=== PATIENT | female | born 1950 | race Caucasian/White ===

== ENCOUNTER 2016-04-07 19:08 | Emergency (ER) | payer OTHER ==
[~2016-04-07] VITALS: Ht 147.3 cm; Wt 89.5 kg
[~2016-04-07 19:08] MED LIST: ADULT LOW DOSE81 M1 PO; APLISOL5 TUB UNIT ID; ASPIR-LOW81 MG PO; ASPIRIN81 M2 PO; ATIVAN1 MG PO; ATORVASTATIN CA80 MG PO; BACTRIM,SEPT1 TABLET PO; BENTYL10 MG PO; BUMEX1 MG PO; CEFTIN500 MG PO; CYMBALTA30 MG PO; DOXYCYCLINE HY100 MG PO; DULCOLAX10 MG PR; DUONEB 2.5-0.5 M3 ML AEROSOL; ERGOCALCIF50000 UNIT PO; FLEET ENEMA-AD118 ML PR; FLORASTOR250 MG PO; GLYBURIDE2.5 MG PO; HYDROCODON-ACE1 EAC7 PO; JANUMET 50/51 TABLET PO; JANUVIA100 MG PO; JANUVIA25 M1 PO; LEVAQUIN500 MG PO; LEVOTHYROXINE50 MCG PO; LIPITOR40 MG PO; LIPITOR80 MG PO; LISINOPRIL10 MG PO; LISINOPRIL20 MG PO; LOPERAMIDE2 M1 PO; LOPRESSOR50 MG PO; Levaquin PO; Lipitor PO; METFORMIN HCL500 MG PO; METOPROLOL SUCC25 MG PO; METOPROLOL TART50 MG PO; MICRONASE2.5 MG PO; MILK OF MAGN PO; MUCINEX600 MG PO; NOVOLOG PE100 UNITS/ SC; PRINIVIL20 MG PO; PROVENTIL,2.5 MG/0.5 IH; ROXICODONE5 MG PO; Robitussin DM PO; SERTRALINE HCL50 MG PO; SYNTHROID50 MCG PO; TOPROL XL50 MG PO; TRAZODONE HCL50 MG PO; VITAMIN B-122000 MC1 PO; VITAMIN D250000 UNIT PO; VITAMIN D310000 UNIT PO; Vitamin B-12 PO; ZESTRIL,PRINIVI20 MG PO; ZESTRIL20 MG PO; ZOLOFT50 MG PO; Zestril,Prinivil PO; Zoloft PO
[2016-04-07 20:18] LABS: CARBON DIOXIDE (BICARBONATE) 33.5 MEQ/L (20-31); MCH 29.2 PG (29.0-34.0); MCHC 31.2 G/DL (30.0-36.0); MCV 93.7 FL (83-99); PLATELET COUNT 211 K/uL (156-360); RBC DIS.WIDTH-CV 14.4 % (11.8-14.6); RBC DIS.WIDTH-SD 46.9 % (39-53); RED BLOOD COUNT 3.63 M/uL (3.80-5.20); WHITE BLOOD COUNT 6.3 K/uL (4.1-10.2)
[2016-04-07 20:42] LABS: TROP-I INTERPRETATION NEGATIVE; TROPONIN-I 0.03 ng/mL (0.0-0.30)
[2016-04-07 20:47] LABS: CHLORIDE 105 mEq/L (99-109); POTASSIUM 4.3 mEq/L (3.7-5.4); SODIUM 143 mEq/L (136-147)
[2016-04-07 20:49] LABS: GLUCOSE 98 mg/dL (70-99)
[2016-04-07 20:50] LABS: ANION GAP 10 MEQ/L (2-14)
[2016-04-07 20:52] LABS: GFR ESTIMATE (CALCULATED) 47 mL/min/
[2016-04-07 20:54] LABS: UREA NITROGEN (BUN) 32 mg/dL (9-23)
[2016-04-07 23:10] VITALS: BP 139/67
== END 2016-04-07 23:10 ==
LOC: EME → EDBD 19:08 → EME 19:08
PROVIDERS: Emergency Medicine
DX: J44.0 Chronic obstructive pulmonary disease with (acute) lower respiratory infection (principal); J18.9 Pneumonia, unspecified organism; E11.9 Type 2 diabetes mellitus without complications; E78.5 Hyperlipidemia, unspecified; I10 Essential (primary) hypertension; Q96.9 Turner's syndrome, unspecified; Z87.442 Personal history of urinary calculi; Z87.891 Personal history of nicotine dependence
CPT/HCPCS: 71020; 80048; 82803; 83605; 83880; 84484; 85027; 87040; 93005; 94640; 94799; 99281; 99284

== ENCOUNTER 2016-12-16 02:34 | Inpatient (IN) | payer OTHER ==
[~2016-12-16] VITALS: Ht 144.8 cm; Wt 79.3 kg
[2016-12-16 03:40] LABS: HEMATOCRIT 38.2 % (36.0-46.0); MCH 30.3 PG (29.0-34.0); MCHC 32.2 G/DL (30.0-36.0); MCV 94.1 FL (83-99); MEAN PLAT.VOLUME 9.6 uM^3 (9.5-12.4); PLATELET COUNT 244 K/uL (156-360); RBC DIS.WIDTH-SD 45.1 % (39-53); RED BLOOD COUNT 4.06 M/uL (3.80-5.20); WHITE BLOOD COUNT 14.6 K/uL (4.1-10.2)
[2016-12-16 03:42] LABS: CARBON DIOXIDE (BICARBONATE) 33.2 MEQ/L (20-31)
[2016-12-16 03:49] LABS: PROTHROMBIN TIME 11.5 SEC (10.2-12.9)
[2016-12-16 03:51] LABS: CHLORIDE 102 mEq/L (99-109); POTASSIUM 4.7 mEq/L (3.7-5.4); SODIUM 142 mEq/L (136-147)
[2016-12-16 03:52] LABS: PTT 29.8 SEC (25-37)
[2016-12-16 03:53] LABS: GLUCOSE 276 mg/dL (70-99)
[2016-12-16 03:55] LABS: ANION GAP 12 MEQ/L (2-14); TOTAL BILIRUBIN 0.5 mg/dL (0.0-1.0)
[2016-12-16 03:57] LABS: ALKALINE PHOSPHATASE 108 IU/L (3-129); GFR ESTIMATE (CALCULATED) 47 mL/min/
[2016-12-16 03:58] LABS: UREA NITROGEN (BUN) 42 mg/dL (9-23)
[2016-12-16 04:00] LABS: LIPASE 6 U/L (1.0-51.0)
[2016-12-16 04:01] LABS: TROP-I INTERPRETATION NEGATIVE; TROPONIN-I 0.09 ng/mL (0.0-0.30)
[2016-12-16 05:50] VITALS: BP 115/80
[2016-12-16 06:00] VITALS: BP 106/79
[2016-12-16 06:07] LABS: BASE EXCESS 5.5 mEq/L (-3 to +3); BICARBONATE 32.9 mEq/L (22-26); CARBOXY HGB 0.9 % (0-5); COMMENTS - BLOOD GASES C+; DEVICE MASK VENT; FI02 70 %; METHEMOGLOBIN 1.4 % (0-1.5); MODE SPONT; PCO2 61 mm Hg (35-45); PEEP 10 CM/H20; PO2 80 mm Hg (80-100); PRES. SUPPORT 15 CM/H2O; SITE RR; TOTAL RESP RATE 38 resp/min; pH 7.34 (7.35-7.45)
[2016-12-16 06:25] VITALS: BP 114/70
[2016-12-16 08:00] VITALS: BP 136/67
[2016-12-16 09:08] LABS: METH RESISTANT S AUREUS PCR POSITIVE (NEGATIVE)
[2016-12-16 09:11] LABS: PROBE CHECK PASS
[2016-12-16 12:00] VITALS: BP 87/50
[2016-12-16] MEDS ORDERED: ASCORBIC ACID500 M3 PO (13:20)
[2016-12-16] MEDS ORDERED: CYMBALTA30 MG PO (13:23)
[2016-12-16] MEDS ORDERED: VITAMIN D22000 UNIT PO (13:24)
[2016-12-16] MEDS ORDERED: COLACE100 MG PO (13:30)
[2016-12-16] MEDS ORDERED: FERROUS SULFAT325 MG PO (13:31)
[2016-12-16] MEDS ORDERED: GLUCOPHAGE500 MG PO (13:33)
[2016-12-16] MEDS ORDERED: PURE & GENTLE E15 ML BOTH EYES (13:38)
[2016-12-16] MEDS ORDERED: DULCOLAX10 MG PR (13:39)
[2016-12-16] MEDS ORDERED: FLEET MINERAL133 ML PR (13:41)
[2016-12-16] MEDS ORDERED: MILK OF MAGN PO (13:42)
[2016-12-16] MEDS ORDERED: ROXICODONE5 MG PO (13:44)
[2016-12-16] MEDS ORDERED: TYLENOL REGULA325 MG PO (13:57)
[2016-12-16] MEDS ORDERED: ONDANSETRON HCL8 MG PO (13:59)
[2016-12-16 14:00] VITALS: BP 74/55
[2016-12-16] MEDS ORDERED: [UNRECOGNIZED DRUG - OTHER] TP (14:02)
== END 2016-12-17 04:00 | DRG 189 ==
LOC: EME → EDBD 02:34 → EME 02:34 → EDOF 04:25 → 5EAST 04:25 → 4WEST 04:25 → ENRESERV 04:28 → 4WEST 05:37 → ENRESERV 07:55 → CANRESERV 07:55 → ENRESERV 08:52 → 4WEST 11:34 → ENRESERV 12:04 → 5EAST 15:42
PROVIDERS: Emergency Medicine; Internal Medicine Critical Care Medicine
PROC: 5A09358 Assistance with Respiratory Ventilation, Less than 24 Consecutive Hours, Intermittent Positive Airway Pressure (ICD-10-PCS; principal; 2016-12-16)
DX: J96.21 Acute and chronic respiratory failure with hypoxia (principal); J44.0 Chronic obstructive pulmonary disease with (acute) lower respiratory infection; J18.9 Pneumonia, unspecified organism; E87.2 Acidosis; I13.0 Hypertensive heart and chronic kidney disease with heart failure and stage 1 through stage 4 chronic kidney disease, or unspecified chronic kidney disease; I50.9 Heart failure, unspecified; N18.9 Chronic kidney disease, unspecified; E11.22 Type 2 diabetes mellitus with diabetic chronic kidney disease; E11.65 Type 2 diabetes mellitus with hyperglycemia; M41.9 Scoliosis, unspecified; E78.5 Hyperlipidemia, unspecified; F32.9 Major depressive disorder, single episode, unspecified; F41.9 Anxiety disorder, unspecified; M19.90 Unspecified osteoarthritis, unspecified site; Z66 Do not resuscitate; Z99.81 Dependence on supplemental oxygen; Z87.891 Personal history of nicotine dependence; Z91.81 History of falling; Z87.442 Personal history of urinary calculi
CPT/HCPCS: 36600; 71010; 80053; 82803; 83605; 83690; 83880; 84484; 85027; 85610; 85730; 87040; 87641; 93005; 94002; 94640; 94640 76; 94799; 99202; 99281; 99285; J0456; J0696; J1650; J2060; J2270; J7050